=== PATIENT | female | born 1975 | race Caucasian/White ===

== ENCOUNTER 2017-08-02 05:57 | Day surgery (SDC) | payer OTHER ==
[2017-08-02] MEDS ORDERED: MIDAZOLAM 1 MG/ML 2 ML INJ ×2 (08:08)
[2017-08-02] MEDS ORDERED: FENTAnyl 50 MCG/ML VIAL (08:08)
== END 2017-08-02 12:07 | disposition home or self-care (01) ==
LOC: GIL 05:57
DX: D12.0 Benign neoplasm of cecum (principal); K64.4 Residual hemorrhoidal skin tags
CPT/HCPCS: 45380; 88305